=== PATIENT | female | born 1945 | race Asian ===

== ENCOUNTER 2016-07-15 03:40 | Emergency (ER) | payer MEDICARE ==
[~2016-07-15] VITALS: Ht 152.4 cm; Wt 54.4 kg
[2016-07-15 03:40] VITALS: BP 92/60; PULSE 150; RESP 20; TEMP 98; O2SAT 100
--- NOTE | 2016-07-15 03:40 | NUR ---
Report given to TORRES RUTHERFORD.
--- NOTE | 2016-07-15 03:40 | NUR ---
Patient to ER bed 1 to gown for evaluation. Side rails up.
--- NOTE | 2016-07-15 03:42 | NUR ---
Pt BIB EMS with c/o palpitation and feeling her heart racing, started at midnight, bearing down without relief. Pt appeared calm, skin dry, intact, A&Ox4, denies chestpain or SOB, denies N/V/D. Will continue to monitor
--- NOTE | 2016-07-15 03:57 | NUR ---
ER at bedside examining patient.
[2016-07-15] MEDS ORDERED: NACL 0.9% 1,000 ML IV ONE (04:00)
[2016-07-15] MEDS ORDERED: DILTIAZEM HCL 25 MG/5 ML VIAL IVP ONE (04:00)
--- NOTE | 2016-07-15 04:06 | NUR ---
Waste documented in Pyxis. 15mg of Diltiazem wasted, only 10mg out of ordered 20mg was administered out of 25 mg/5ml bottle.
--- NOTE | 2016-07-15 04:06 | NUR ---
Given 10 mg Diltiazem IVP out of 20 mg as ordered by MD Garner, Pt HR 96, BP 96/56, O2 98% on RA, RR 14. MD Garner stated to waste 10mg Ditiazem. Total dosage given is 10 mg Diltiazem IVP.
--- NOTE | 2016-07-15 04:35 | NUR ---
MD Garner notified about lactic acid 2.4, MD garner stated pt is not septic. Sepsis protocol will not be activated
[2016-07-15 04:41] LABS: BASOPHILS # (AUTO) 0.1 K/uL (0.0-0.2); BASOPHILS % (AUTO) 0.9 % (0.0-2.0); EOSINOPHILS % (AUTO) 0.4 % (0.0-4.0); HEMATOCRIT 41.2 % (36-48); HEMOGLOBIN 14.1 g/dL (12.0-16.0); LYMPHOCYTES # (AUTO) 0.8 K/uL (1.0-5.5); LYMPHOCYTES % (AUTO) 7.3 % (20.5-51.5); MEAN CORPUSCULAR HEMOGLOBIN 30 pg (27-31); MEAN CORPUSCULAR HGB CONC 34 % (32-36); MEAN CORPUSCULAR VOLUME 86 fL (79.0-98.0); MONOCYTES # (AUTO) 0.2 K/uL (0.0-1.0); MONOCYTES % (AUTO) 1.5 % (1.7-9.3); NEUTROPHILS # (AUTO) 9.6 K/uL (1.8-7.7); NEUTROPHILS % (AUTO) 89.9 % (40.0-70.0); PLATELET COUNT (AUTO) 325 K/uL (130-430); RED BLOOD CELL COUNT(AUTO) 4.77 MIL/uL (4.2-6.2); RED CELL DISTRIBUTION WIDTH 12.4 % (9.0-15.0); WHITE BLOOD COUNT (AUTO) 10.7 K/uL (4.8-10.8)
[2016-07-15 04:41] LABS: BILIRUBIN,URINE NEGATIVE (NEGATIVE); CLARITY/URINE CLEAR (CLEAR); COLOR,URINE YELLOW (YELLOW); GLUCOSE,URINE NEGATIVE (NEGATIVE); KETONES,URINE NEGATIVE (NEGATIVE); LEUKOCYTE ESTERASE ,URINE NEGATIVE (NEGATIVE); NITRITE, URINE NEGATIVE (NEGATIVE); PH,URINE 7.5 (5.0-8.0); PROTEIN URINE NEGATIVE (NEGATIVE); UROBILINOGEN,URINE 0.2 (0.2-1.0)
--- NOTE | 2016-07-15 04:45 | NUR ---
HR 96, BP 110/63, 100% on RA. Pt in comfortable condition
[2016-07-15 04:51] LABS: BLOOD, URINE TRACE (NEGATIVE)
[2016-07-15 04:55] LABS: PROTHROMBIN TIME 10.7 SECS (9.5-12.5)
[2016-07-15 04:57] LABS: ANION GAP 6 (5-15); CALCIUM 9.1 mg/dL (8.4-11.0); CHLORIDE 103 mmol/L (98-107); CREATININE 1.09 mg/dL (0.55-1.30); GLUCOSE 133 mg/dL (70-99); SODIUM SERUM 135 mmol/L (136-145); UREA NITROGEN, BLOOD 23 mg/dL (8-21)
[2016-07-15 05:01] LABS: ALANINE AMINOTRANSFERASE 25 U/L (12-78); ALBUMIN 3.4 g/dL (3.4-4.8); ASPARTATE AMINOTRANSFERASE 18 U/L (10-37); TOTAL BILIRUBIN 0.6 mg/dL (0.0-1.0); TOTAL PROTEIN, SERUM 6.9 g/dL (6.4-8.3)
[2016-07-15 05:06] LABS: RBC,URINE 0-3 /HPF (0-3); WBC,URINE 0-3 /HPF (0-3)
[2016-07-15 05:07] LABS: BACTERIA,URINE FEW /HPF (None Seen); MUCUS,URINE None Seen /LPF (None Seen)
--- NOTE | 2016-07-15 06:07 | NUR ---
Patient daughter called ER. 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 Patient informed and consents to daughter picking her up. Patient vital signs stable at this time. No acute distress noted. Will continue to monitor.
--- NOTE | 2016-07-15 06:18 | NUR ---
Patient given written and verbal discharge instructions and verbalizes understanding. ER MD Garner discussed with patient the results and treatment provided. Patient in stable condition. ID arm band removed. IV catheter removed intact and dressing applied, no active bleeding. No Rx given. Patient educated on pain management and to follow up with PMD. Pain Scale 0/10 Opportunity for questions provided and answered.
[2016-07-15 06:20] VITALS: BP 106/73; PULSE 92; RESP 16; TEMP 98; O2SAT 98
== END 2016-07-15 06:20 | disposition home or self-care (01) ==
LOC: SED 03:40
DX: I47.1 Supraventricular tachycardia (principal)
CPT/HCPCS: 36415; 71010; 80053; 81000; 83605; 84484; 85025; 85610; 85730; 87040; 93005; 96361; 96374; 99285; J3490; J7030